=== PATIENT | male | born 1940 | race Caucasian/White ===

== ENCOUNTER 2022-03-18 11:36 | Emergency (ER) | payer MEDICARE, SELFPAY ==
[2022-03-18] VITALS (11 sets, daily range): BP systolic 104–126; BP diastolic 69–83; PULSE 53–82; RESP 18–32; TEMP 36.2; O2SAT 89–100; BMI 27.3
--- NOTE | 2022-03-18 12:25 | CRLHL7_ITS ---
For Patients: As a result of the Century Cures Act, medical imaging exams and procedure reports are released immediately into your electronic medical record. You may view this report before your referring provider. If you have questions, please contact your health care provider. INDICATION: Shortness of breath. TECHNIQUE: Chest 2 views. COMPARISON: None. FINDINGS: Lungs: Diffuse interstitial prominence, with patchy opacities in the left upper and right lower lobes. Pleura: Layering bilateral pleural effusions, right larger than left. Heart and Mediastinum: The heart is enlarged. Dual lead pacemaker has its battery pack in the left chest wall. Bilateral hilar prominence could be enlarged vasculature. Bones: Unremarkable. IMPRESSION: Findings suggest congestive heart failure. Dictated by Carlos Foote MD @ 03/18/2022 1:36:17 PM (Electronically Signed)
--- NOTE | 2022-03-18 12:41 | ED.CHESTPAIN ---
HPI - Chest Pain General Date Seen: 03/18/22 Chief Complaint: Chest Pain Stated Complaint: Chest pain Time Seen by Provider: 03/18/22 11:52 Source: patient Mode of arrival: ambulatory Limitations: no limitations History of Present Illness HPI narrative: Patient is 81-year-old gentleman who presents to the emergency room for evaluation of shortness of breath. Does not really have chest pain but any sort of activity greater than 100 ft causes him to become short of breath. This is been for the last 3-4 weeks, he was recently hospitalized in the [facility] for 5 days, secondary to this. Brought in today by his son and he has moved up here from that area to be closer to his family. He is unfortunately gives no history at all what happened through his son I can tell that his troponin was high at that time but other than that they have no idea what his diagnosis is or what they did there. He does have a history of previous coronary artery disease with a CABG done approximately 9 years ago and what sounds like pig valves. No history of fevers chills or sweats he denies any significant swelling of his legs, he is not on home oxygen, his medications been stable. MD complaint: chest heaviness Pertinent past history: coronary artery disease and CABG Onset (ago): week(s) Timing of current episode: episodic Prior episodes: Yes Onset: during exertion Pain location: substernal Pain radiation: none Severity: moderate Relieving factors: nothing Exacerbating factors: exertion Treatment prior to arrival: none Risk Factors Coronary artery disease risk factors: none Thoracic aortic dissection risk factors: none Related Data Home Medications Medication Instructions Recorded Confirmed aspirin 81 mg tablet,delayed 81 mg PO DAILY 03/18/22 03/18/22 release (Adult Aspirin Regimen) clopidogrel 75 mg tablet 75 mg PO DAILY 03/18/22 03/18/22 glimepiride 4 mg tablet 2 mg PO DAILY 03/18/22 03/18/22 levothyroxine 50 mcg capsule 50 mcg PO DAILY 03/18/22 03/18/22 metformin 500 mg tablet 500 mg PO BID 03/18/22 03/18/22 metoprolol tartrate 50 mg tablet 50 mg PO DAILY 03/18/22 03/18/22 sertraline 100 mg tablet 100 mg PO DAILY 03/18/22 03/18/22 spironolactone 25 mg tablet 25 mg PO DAILY 03/18/22 03/18/22 torsemide 20 mg tablet 10 mg PO DAILY 03/18/22 03/18/22 Previous Rx's Medication Instructions Recorded torsemide 20 mg tablet 20 mg PO DAILY #30 tabs 03/18/22 Allergies Allergy/AdvReac Type Severity Reaction Status Date / Time lisinopril Allergy Verified 03/18/22 11:54 Review of Systems Status of ROS Reports: 10 or more systems reviewed and unremarkable except as noted in History and below PFSH [facility] Social History Smoking Status: Former smoker Do you use any of these nicotine containing products: None Second hand tobacco smoke exposure: No How often do you have a drink containing alcohol: never How often do you have six or more drinks on one occasion: Never AUDIT-C Alcohol total score: 0 Non-prescribed substance use: denies use service: No Exam Narrative Exam Narrative: 81-year-old gentleman seen in room 3 in no apparent distress, he is speaking to me normally, appears to not really know his medical situation. He is accompanied by his very nice son. His vital signs are stable, he is nontoxic Pupils are equal round reactive to light there is no scleral icterus redness TMs are normal oropharynx is normal there is no adenopathy anterior posterior chains, JVP is flat, full upstrokes are noted bilaterally, there is no meningismus, and cranial nerves 3-12 are normal. Chest has good air entry bilaterally with occasional wheezes prolonged expiratory phase is noted but there is no signs of respiratory distress. Maybe some dullness to percussion at the bases. S1-S2 are normal there is a 2/6 systolic murmur across the left sternal border with radiation to the aortic area, I do hear an S3. No S4. Abdomen is soft and obese there is no guarding no organomegaly 1+ pitting edema is noted of the lower extremities bilaterally symmetrical, moves all extremities independently well with normal beckett upper lower extremities, skin reveals no petechiae rashes but he has got a bit of a sallow complexion. Neurologically intact Const Vital Signs, click to edit/add: Vital Signs - 24 hr 03/18/22 11:44 03/18/22 12:15 03/18/22 12:30 Temperature 97.2 F L Pulse Rate [Right Pulse Oximeter] 53 L 82 72 Respiratory Rate 18 30 H 22 Blood Pressure [Right Upper Arm] 117/78 121/82 117/77 Pulse Oximetry 100 94 96 Oxygen Delivery Method Room Air Room Air Room Air 03/18/22 13:00 03/18/22 13:30 03/18/22 14:00 Temperature Pulse Rate [Right Pulse Oximeter] 71 69 69 Respiratory Rate 23 21 29 H Blood Pressure [Right Upper Arm] 108/76 117/74 114/75 Pulse Oximetry 92 Oxygen Delivery Method Room Air Room Air 03/18/22 14:15 03/18/22 15:00 Temperature Pulse Rate [Right Pulse Oximeter] 81 69 Respiratory Rate 32 H 22 Blood Pressure [Right Upper Arm] 104/74 104/69 Pulse Oximetry 93 95 Oxygen Delivery Method Room Air Room Air Documenting provider has reviewed patient's vital signs: yes Course Course Hospital Course: Was able to review medical notes from recent admission on February 09 through February 12 at the [facility] in [facility]. Patient was admitted there for elevated troponin, was found to be chronically elevated, during his time there. 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 Also noted that visit this he has chronic renal insufficiency with creatinine is in the 1 .6-1. 9 range. I discussed with him his creatinine is elevated here at 0.19 I am not sure the significance of this, there is bilateral pleural effusions and signs of congestive heart failure on his exam, we will give him a dose of Lasix, and he likely will need increasing doses of Lasix. He wanted to leave, but I have discussed with him that we should at minimum here today due bilateral leg ultrasounds and also a repeat troponin to see which way we are trending with this. Requesting a primary care consult son does see Harpreet Montalvo for primary care which I think would be a fabulous choice. Cardiology would be able to be seeing him also. I spoke to the son, his 2nd troponin came back elevated but less than the 1st, at 0.10. I think it would be reasonable to discharge him as I think his troponin is always chronically elevated partly from his renal failure but also could be from his cardiomyopathy. He is in heart failure, and I think would benefit by increasing the torsemide. We did give him a dose of Lasix here IV. I was able to speak to his son's primary care physician who agreed to see Mr. Fraga in follow-up. Increasing chest pain shortness of breath he should follow up at once, I did note to him that his bilateral leg ultrasound was negative, and given his renal failure status do not think further workup is needed with this, with the risk of worsening his kidney function secondary to contrast. Vital Signs Vital signs: Initial Vital Signs Temperature 97.2 F L 03/18/22 11:44 Temperature Source Temporal Artery Scan 03/18/22 11:44 Pulse Rate 53 L 03/18/22 11:44 Respiratory Rate 18 03/18/22 11:44 Blood Pressure 117/78 03/18/22 11:44 Blood Pressure Mean 91 03/18/22 11:44 Blood Pressure Position Sitting 03/18/22 11:44 Pulse Oximetry 100 03/18/22 11:44 Oxygen Delivery Method 03/18/22 11:44 Vital Signs Temperature 97.2 F L 03/18/22 11:44 Pulse Rate 53 L 03/18/22 11:44 Respiratory Rate 18 03/18/22 11:44 Blood Pressure 117/78 03/18/22 11:44 Pulse Oximetry 100 03/18/22 11:44 Oxygen Delivery Method 03/18/22 11:44 Temperature 97.2 F L 03/18/22 11:44 Pulse Rate 69 03/18/22 15:00 Respiratory Rate 22 03/18/22 15:00 Blood Pressure 104/69 03/18/22 15:00 Pulse Oximetry 95 03/18/22 15:00 Oxygen Delivery Method 03/18/22 15:00 MDM - Chest Pain MDM Narrative Medical decision making narrative: Life-threatening differential diagnosis includes occluded COPD exacerbation, pulmonary edema, acute coronary syndromes, pulmonary embolism, pneumonia, and pneumothorax. Other differential diagnosis considerations include asthma, bronchitis as well as other etiologies First things 1st we need to get some information from his recent hospitalization in [place], and correlate that with his current situation. Medical Records Data Attestation: I reviewed the patient's medical records. Lab Data Attestation: I reviewed the patient's lab results. Labs: Lab Results 03/18/22 03/18/22 03/18/22 Range/Units 12:25 12:26 12:26 WBC 9.04 (4.50-11.00) K/uL RBC 4.46 (4.30-5.90) m/uL Hgb 13.3 L (13.5-17.5) gm/dL Hct 41.6 (37.0-53.0) % MCV 93 (80-100) fL MCH 30 (26-34) pg MCHC 32 (32-36) gm/dL RDW Coeff of Holli 13.6 (11.5-15.5) % Plt Count 291 (140-440) K/uL Neut % (Auto) 89.8 H (42.0-72.0) % Lymph % (Auto) 4.0 L (20-44) % [place] % (Auto) 5.8 (0.0-11.0) % Eos % (Auto) 0.1 (0.0-7.0) % Baso % (Auto) 0.1 (0.0-3.0) % Neut # (Auto) 8.10 H (1.7-7.0) K/uL Lymph # (Auto) 0.40 L (0.90-2.90) K/uL [place] # (Auto) 0.50 (0.00-0.90) K/UL Eos # (Auto) 0.01 (0.00-0.50) K/uL Baso # (Auto) 0.01 (0.00-0.30) K/uL Abs Immat Gran (auto) 0.02 (0.00-0.30) K/uL INR 1.40 H (0.91-1.10) APTT 42 H (23-33) Seconds D-Dimer Quant (PE/DVT) 1.74 H (0.00-0.50) ug/ml Sodium 133 L (135-149) mmol/L Potassium 5.4 H (3.6-5.1) mmol/L Chloride 97 (96-114) mmol/L Carbon Dioxide 25 (20-32) mmol/L BUN 33 H (7-30) mg/dL Creatinine 1.9 H (0.5-1.5) mg/dL Estimated Creat Clear 32.02 Estimated GFR 35 ml/min Glucose 285 H (60-115) mg/dL Calcium 9.4 (8.4-10.6) mg/dL Troponin I (0.01-0.04) ng/mL C-Reactive Protein 6.4 H (0.5-1.0) mg/dL NT-Pro-B Natriuret Pep (0-450) PG/mL SARS-CoV-2 (PCR) (Negative) Influenza Type A (PCR) (Negative) Influenza Type B (PCR) (Negative) RSV (PCR) (Negative) POC Troponin I (0.01-0.04) ng/ml 03/18/22 03/18/22 03/18/22 Range/Units 12:26 13:30 15:30 WBC (4.50-11.00) K/uL RBC (4.30-5.90) m/uL Hgb (13.5-17.5) gm/dL Hct (37.0-53.0) % MCV (80-100) fL MCH (26-34) pg MCHC (32-36) gm/dL RDW Coeff of Holli (11.5-15.5) % Plt Count (140-440) K/uL Neut % (Auto) (42.0-72.0) % Lymph % (Auto) (20-44) % [place] % (Auto) (0.0-11.0) % Eos % (Auto) (0.0-7.0) % Baso % (Auto) (0.0-3.0) % Neut # (Auto) (1.7-7.0) K/uL Lymph # (Auto) (0.90-2.90) K/uL [place] # (Auto) (0.00-0.90) K/UL Eos # (Auto) (0.00-0.50) K/uL Baso # (Auto) (0.00-0.30) K/uL Abs Immat Gran (auto) (0.00-0.30) K/uL INR (0.91-1.10) APTT (23-33) Seconds D-Dimer Quant (PE/DVT) (0.00-0.50) ug/ml Sodium (135-149) mmol/L Potassium (3.6-5.1) mmol/L Chloride (96-114) mmol/L Carbon Dioxide (20-32) mmol/L BUN (7-30) mg/dL Creatinine (0.5-1.5) mg/dL Estimated Creat Clear Estimated GFR ml/min Glucose (60-115) mg/dL Calcium (8.4-10.6) mg/dL Troponin I 0.15 H* (0.01-0.04) ng/mL C-Reactive Protein (0.5-1.0) mg/dL NT-Pro-B Natriuret Pep 43093 H (0-450) PG/mL SARS-CoV-2 (PCR) Negative SARS-CoV-2 (Negative) Influenza Type A (PCR) Negative PCR FLU A (Negative) Influenza Type B (PCR) Negative PCR FLU B (Negative) RSV (PCR) Negative PCR RSV (Negative) POC Troponin I 0.10 H (0.01-0.04) ng/ml Imaging Data Chest x-ray: Attestation: I have reviewed the pertinent imaging results. My impression: Bilateral pleural effusions with evidence of congestive heart failure Radiologist's impression: .Patient: LISA FRAGA Facility: [facility] Site . Site : 1940 Study: XRay Chest 2 VIEWS-03/18/2022 1:21:06 PM Ordering Physician: Donna Hale Final Report: INDICATION: Shortness of breath. TECHNIQUE: Chest 2 views. COMPARISON: None. FINDINGS: Lungs: Diffuse interstitial prominence, with patchy opacities in the left upper and right lower lobes. Pleura: Layering bilateral pleural effusions, right larger than left. Heart and Mediastinum: The heart is enlarged. Dual lead pacemaker has its battery pack in the left chest wall. Bilateral hilar prominence could be enlarged vasculature. Bones: Unremarkable. IMPRESSION: Findings suggest congestive heart failure. Dictated by Carlos Foote MD @ 03/18/2022 1:36:17 PM (Electronic Signature) ECG Data ECG interpretation date: 03/18/22 Prior ECG tracings: not available for review Interpretation: Paced rhythm, at 73, no old EKGs. Pacemaker function: normal pacer function Discharge Plan Discharge Clinical Impression: Exertional shortness of breath, Congestive heart failure, Elevated troponin, Dementia Patient Disposition: Home w/ Parent or Adult Condition: Stable Instructions: Heart Failure (DC), Shortness of Breath (ED), High Troponin Levels (ED) Additional Instructions: Home rest increasing torsemide to 20 mg a day, follow-up within a week with primary care, return here if increasing chest pain shortness of breath. Prescriptions: New torsemide 20 mg tablet 20 mg PO DAILY Qty: 30 2RF Rx Instructions: Take the torsemide 20 mg a day, please do not take it with your 10 mg torsemide No Action sertraline 100 mg tablet 100 mg PO DAILY aspirin [Adult Aspirin Regimen] 81 mg tablet,delayed release (DR/EC) 81 mg PO DAILY levothyroxine 50 mcg capsule 50 mcg PO DAILY spironolactone 25 mg tablet 25 mg PO DAILY metformin 500 mg tablet 500 mg PO BID torsemide 20 mg tablet 10 mg PO DAILY clopidogrel 75 mg tablet 75 mg PO DAILY glimepiride 4 mg tablet 2 mg PO DAILY metoprolol tartrate 50 mg tablet 50 mg PO DAILY Follow Up/Referrals: Harpreet Montalvo MD [Staff Physician] - Provider,Not a Local [Primary Care Provider] - Stand Alone Forms: [facility] Info Instructions
[2022-03-18 13:01] LABS: Basophils Absolute Auto 0.01 K/uL (0.00-0.30); Basophils Percent Auto 0.1 % (0.0-3.0); Eosinophils Absolute Auto 0.01 K/uL (0.00-0.50); Eosinophils Percent Auto 0.1 % (0.0-7.0); Hematocrit 41.6 % (37.0-53.0); Hemoglobin* 13.3 gm/dL (13.5-17.5); Immature Granulocytes Abs Auto 0.02 K/uL (0.00-0.30); Mean Corpuscular HGB Conc 32 gm/dL (32-36); Mean Corpuscular Hemoglobin 30 pg (26-34); Mean Corpuscular Volume 93 fL (80-100); Monocytes Percent Auto 5.8 % (0.0-11.0); Neutrophils Percent Auto 89.8 % (42.0-72.0); Platelet Count* 291 K/uL (140-440); RDW Coefficient of Variation % 13.6 % (11.5-15.5); Red Blood Count 4.46 m/uL (4.30-5.90); White Blood Count* 9.04 K/uL (4.50-11.00)
[2022-03-18 13:04] LABS: Slide Review Reflex No
[2022-03-18 13:13] LABS: Chloride* 97 mmol/L (96-114); Potassium* 5.4 mmol/L (3.6-5.1); Sodium* 133 mmol/L (135-149)
[2022-03-18 13:16] LABS: Blood Urea Nitrogen* 33 mg/dL (7-30); Carbon Dioxide* 25 mmol/L (20-32); Creatinine* 1.9 mg/dL (0.5-1.5); Est. Creatinine Clearance* 32.02; Estimated Glomerular Filt Rate 35 ml/min
[2022-03-18 13:17] LABS: Calcium* 9.4 mg/dL (8.4-10.6); Glucose* 285 mg/dL (60-115)
[2022-03-18 13:18] LABS: Prothrombin Time 17.5 Seconds
[2022-03-18 13:19] LABS: Partial Thromboplastin Time* 42 Seconds (23-33)
[2022-03-18 13:20] LABS: C Reactive Protein* 6.4 mg/dL (0.5-1.0)
[2022-03-18 13:21] LABS: D Dimer Quantitative* 1.74 ug/ml (0.00-0.50)
[2022-03-18 13:35] LABS: Troponin I* 0.15 ng/mL (0.01-0.04)
[2022-03-18 13:50] LABS: NT Pro B Type NatriureticPept* 46800 PG/mL (0-450)
[2022-03-18 13:58] LABS: PCR FLU A Negative PCR FLU A (Negative); PCR FLU B Negative PCR FLU B (Negative); PCR RSV Negative PCR RSV (Negative)
--- NOTE | 2022-03-18 14:12 | ED.NURSE ---
Pt up to the restroom. Just received results from outside facility. to review.
[2022-03-18 14:17] LABS: SARS PCR* Negative SARS-CoV-2 (Negative)
--- NOTE | 2022-03-18 14:25 | CRLHL7_ITS ---
For Patients: As a result of the Century Cures Act, medical imaging exams and procedure reports are released immediately into your electronic medical record. You may view this report before your referring provider. If you have questions, please contact your health care provider. INDICATION: Chest pain. TECHNIQUE: Ultrasound venous duplex bilateral lower extremity. Compression venous exam was performed using sainz-scale, color Doppler, and spectral Doppler analysis. COMPARISON: None. FINDINGS: Deep veins: Sonographic imaging demonstrates the bilateral common femoral, deep femoral, superficial femoral, popliteal, posterior tibial veins to be fully compressible with normal color Doppler blood flow. Superficial veins: Greater saphenous veins are fully compressible. Soft tissues: No popliteal cyst. IMPRESSION: Normal bilateral lower extremity venous ultrasound, no sign of deep venous thrombosis. Dictated by Ross Llanos MD @ 03/18/2022 3:22:05 PM (Electronically Signed)
[2022-03-18] MEDS: FUROSEMIDE 10 MG/ML inj 20 MG IVP (14:59)
--- NOTE | 2022-03-18 17:00 | ED.NURSE ---
was able to use the bathroom times 3 -was wheeled there. [employer] was working for him. son is very loving and concerned.
== END 2022-03-18 16:55 | disposition home or self-care (01) ==
PROVIDERS: Emergency Provider Family Medicine
DX: I50.9 Heart failure, unspecified (principal); R77.8 Other specified abnormalities of plasma proteins; F03.90 Unspecified dementia, unspecified severity, without behavioral disturbance, psychotic disturbance, mood disturbance, and anxiety
CPT/HCPCS: 36415; 71046; 80048; 83880; 84484; 85025; 85379; 85610; 85730; 86140; 87502; 87634; 87635; 93005; 93970; 96374; 99285; J1940

== ENCOUNTER 2022-04-04 15:59 | Outpatient (CLI) | payer MEDICARE, SELFPAY | END 2022-04-04 16:00 | disposition home or self-care (01) | LOC: AMB 05-07 18:21 | PROVIDERS: Visit Provider Family Medicine | DX: I46.9 Cardiac arrest, cause unspecified (principal) | CPT/HCPCS: A0429 ==